=== PATIENT | male | born 1960 | race African-American/Black ===

== ENCOUNTER → 2016-07-21 | Day surgery (SDC) | payer OTHER ==
[~2016-07-21] MED LIST: ALDACTONE100 MG PO; AMARYL2 MG PO; CORGARD20 MG PO; CRESTOR5 MG PO; ENTECAVIR0.5 MG PO; FERRO-TIME325 MG PO; JANUVIA50 MG PO; LASIX20 MG PO; LISINOPRIL-HCTZ1 T17 PO; METFORMIN HCL500 M1 PO; NADOLOL20 MG PO; NADOLOL40 MG PO; NEXAVAR PO; PROTONIX PO; VEMLIDY25 MG PO
--- NOTE | ~2016-07-21 | OR ---
Unit #: [id number] #: [id number] Patient: ZAKIA DICKENS [id number] [address] [id number] MR#: [id number] NAME: ZAKIA DICKENS ROOM: Date of Procedure: 07/21/2016 Admission Date: 07/21/2016 Surgeon: Ben Dasilva M.D. : 1960 Attending Physician: Ben Dasilva M.D. PROCEDURE OPERATIVE NOTE PROCEDURE EGD with banding x5. INDICATION Patient with hepatitis B and cirrhosis, undergoing evaluation with EGD. He has a history of large esophageal varices and bleeding in the past. MEDICATIONS Monitored anesthesia. POSTOPERATIVE FINDINGS 1. Grade 3 esophageal varices. Five bands were placed in the distal third of the esophagus. 2. Diffuse gastropathy. 3. Normal duodenum and distal duodenum. PLAN Continue nadolol and continue PPI therapy. Repeat upper endoscopy in three to six months. DESCRIPTION OF PROCEDURE Patient was explained of the procedure, risks, and benefits, along with the risks and benefits of anesthesia. He was brought to the endoscopy room. Propofol anesthesia was given. Bite block was placed. The scope was passed down the mouth into the esophagus, stomach, duodenum, and distal duodenum, with findings as described. The scope was reintroduced with the multi-shooter, five bands were placed, and gently I pulled it out. He tolerated it well. Dictated by... Cordell Viera/abraham TD: 07/21/2016 14:22 JOB #: [id number] CC: Avel Hunter M.D. Unit #: [id number] #: [id number] Patient: ZAKIA DICKENS PROCEDURE OPERATIVE NOTE Page 1 of 1 X Ben Dasilva MD X PROCEDURE OPERATIVE NOTE
== END | disposition home or self-care (01) ==
LOC: COPS 09:15
DX: K74.60 Unspecified cirrhosis of liver (principal); I85.10 Secondary esophageal varices without bleeding; B19.10 Unspecified viral hepatitis B without hepatic coma; K31.9 Disease of stomach and duodenum, unspecified; K21.9 Gastro-esophageal reflux disease without esophagitis; E11.9 Type 2 diabetes mellitus without complications; I10 Essential (primary) hypertension; E78.5 Hyperlipidemia, unspecified; Z79.84 Long term (current) use of oral hypoglycemic drugs; Z79.899 Other long term (current) drug therapy; Z98.890 Other specified postprocedural states
CPT/HCPCS: 82947